=== PATIENT | male | born 1975 | race Hispanic/Latino ===

== ENCOUNTER 2022-04-03 10:05 | Emergency (ER) | payer SELFPAY ==
[2022-04-03] MEDS ORDERED: Ketorolac Tromethamine 30 MG/ML VIAL ONE (12:58)
[2022-04-04] MEDS ORDERED: predniSONE 20 MG TAB ONE (13:10)
[2022-04-04] MEDS ORDERED: Ketorolac Tromethamine 30 MG/ML VIAL ONE ×2 (13:10)
[2022-04-04] MEDS ORDERED: Cyclobenzaprine 10 MG TAB ONE (13:24)
== END 2022-04-03 13:02 | disposition home or self-care (01) ==
LOC: ERS 10:05
DX: S39.012A Strain of muscle, fascia and tendon of lower back, initial encounter (principal); X58.XXXA Exposure to other specified factors, initial encounter
CPT/HCPCS: 72100; J1885

== ENCOUNTER 2022-04-04 11:48 | Emergency (ER) | payer SELFPAY | END 2022-04-04 14:12 | disposition home or self-care (01) | LOC: ERS 11:48 | DX: S39.012A Strain of muscle, fascia and tendon of lower back, initial encounter (principal); X50.9XXA Other and unspecified overexertion or strenuous movements or postures, initial encounter | CPT/HCPCS: 96372; 99283 ==

== ENCOUNTER 2022-04-13 08:56 | Emergency (ER) | payer SELFPAY ==
[~2022-04-13 08:56] MED LIST: ISOVUE-370 76%-LOCM 1 ML ONE
[2022-04-13 09:27] LABS: #Lymphocytes 1.4 thou/uL (1.20-3.40); #Monocytes 0.9 thou/uL (0.11-0.59); #Neutrophils 10.2 thou/uL (1.40-6.50); %Basophils 0.2 % (0.0-1.0); %Eosinophils 0.3 % (0.0-10.0); %Neutrophils 81.5 % (42.0-75.0); Mean Corpuscular HGB CONC 33.8 g/dL (32.0-36.0); Mean Corpuscular Hemoglobin 30.8 pg (27.0-31.0); Mean Corpuscular Volume 91.1 fL (78.0-98.0); Mean Platelet Volume 8.4 fL (7.4-10.4); Platelet Count 276 thou/uL (130-400); RBC Distribution Width 12.6 % (11.5-14.5); Red Blood Cell (RBC) Count 6.18 mill/uL (4.70-6.10); White Blood Cell (WBC) Count 12.6 thou/uL (4.8-10.8)
[2022-04-13 09:53] LABS: ALT (SGPT) 35 U/L (8-55); AST (SGOT) 78 U/L (5-34); Albumin 4.3 g/dL (3.5-5.0); Alkaline Phosphatase 140 U/L (40-110); Anion Gap 18 mmol/L (10-20); BUN (Urea Nitrogen) 22 mg/dL (8.9-20.6); Bilirubin, Total 1.6 mg/dL (0.2-1.2); CK (CPK) 187 U/L (30-200); Calc. Creatinine Clearance 0 mL/min (70-130); Calcium 10.1 mg/dL (7.8-10.44); Carbon Dioxide 22 mmol/L (22-29); Chloride 100 mmol/L (98-107); Estimated GFR 72; Globulin 3.2 g/dL (2.4-3.5); Glucose 148 mg/dL (70-105); Lipase 68 U/L (8-78); Protein, Total 7.5 g/dL (6.0-8.3); Sodium 136 mmol/L (136-145)
[2022-04-13] MEDS ORDERED: Ondansetron PF 4 MG/2 ML Vial ONE (10:10)
[2022-04-13] MEDS ORDERED: Morphine 4 MG/ML VIAL ONE (10:10)
[2022-04-13] MEDS ORDERED: Famotidine/PF 20 mg/2ml Vial ONE (10:17)
== END 2022-04-13 12:26 | disposition home or self-care (01) ==
LOC: ERS 08:56
DX: R10.33 Periumbilical pain (principal); E86.0 Dehydration
CPT/HCPCS: 36415; 71045; 74177; 80053; 82550; 83690; 84484; 85025; 93005; 94760; 96374; 96375; J2270; J2405; Q9966; S0028

== ENCOUNTER 2022-04-14 17:39 | Inpatient (IN) | payer SELFPAY ==
[2022-04-14] MEDS ORDERED: Ondansetron PF 4 MG/2 ML Vial ONE (18:56)
[2022-04-14] MEDS ORDERED: Morphine 4 MG/ML VIAL ONE (18:56)
[2022-04-14 19:09] LABS: Bacteria/HPF None Seen HPF (None Seen); Bilirubin 1+ (Negative); Blood, Urine Negative (Negative); Clarity Clear (Clear); Glucose, Urine (Dipstick) Normal (Negative); Ketone, Urine Negative (Negative); Leukocyte Negative Leu/uL (Negative); Nitrite Negative (Negative); Protein, Urine (Dipstick) 50 mg/dL (Neg-Trace); RBC/HPF 0-3 HPF (0-3); Specific Gravity, Urine 1.039 (1.002-1.036); Squamous Epithelial 0-3 HPF (0-3); Urobilinogen Greater than 12 mg/dL (Less than 2); WBC/HPF 0-3 HPF (0-3)
[2022-04-14 19:12] LABS: Hemoglobin 14.8 g/dL (14.0-18.0); Mean Corpuscular HGB CONC 33.4 g/dL (32.0-36.0); Mean Corpuscular Hemoglobin 31.1 pg (27.0-31.0); Mean Corpuscular Volume 93.1 fL (78.0-98.0); Mean Platelet Volume 8.4 fL (7.4-10.4); Platelet Count 219 thou/uL (130-400); RBC Distribution Width 12.4 % (11.5-14.5); Red Blood Cell (RBC) Count 4.76 mill/uL (4.70-6.10); White Blood Cell (WBC) Count 16.9 thou/uL (4.8-10.8)
[2022-04-14 19:28] LABS: Band 42 % (5-11); Eosinophils 2 % (0-10); Lymphocytes 5 % (21-51); MDiff Complete? YES; Metamyelocyte 7 % (0-0); Monocytes 2 % (0-10); Neutrophil 42 % (42-75); Platelet Morphology Comment Appears Adequate; RBC Morphology Normal; Reflex for Review?? YES; Vacuoles SLIGHT
[2022-04-14 19:52] LABS: ALT (SGPT) 33 U/L (8-55); AST (SGOT) 69 U/L (5-34); Albumin 3.1 g/dL (3.5-5.0); Alkaline Phosphatase 117 U/L (40-110); Anion Gap 14 mmol/L (10-20); BUN (Urea Nitrogen) 16 mg/dL (8.9-20.6); Bilirubin, Total 1.8 mg/dL (0.2-1.2); CK (CPK) 109 U/L (30-200); Calc. Creatinine Clearance 0 mL/min (70-130); Calcium 8.4 mg/dL (7.8-10.44); Carbon Dioxide 23 mmol/L (22-29); Chloride 100 mmol/L (98-107); Estimated GFR 72; Globulin 2.4 g/dL (2.4-3.5); Glucose 121 mg/dL (70-105); Lipase 132 U/L (8-78); Potassium 3.8 mmol/L (3.5-5.1); Protein, Total 5.5 g/dL (6.0-8.3); Sodium 133 mmol/L (136-145)
[2022-04-14] MEDS ORDERED: diphenhydrAMINE 50 MG/ML VIAL ONE (20:01)
[2022-04-14 20:32] LABS: SARS-CoV-2 NAA Rapid Test DETECTED (NotDetected)
[2022-04-14] MEDS ORDERED: Piperacillin/Tazobactam 3.375 GM VIAL ONE (21:28)
[2022-04-14] MEDS ORDERED: EPINEPHrine 1 MG/10 ML Abboject SYRINGE ONE (21:28)
[2022-04-14] MEDS ORDERED: EPINEPHrine 1 MG/ML VIAL ONE (21:28)
[2022-04-14] MEDS ORDERED: Ondansetron ODT 4 MG TAB SL PRN (22:15)
[2022-04-14] MEDS ORDERED: Ondansetron PF 4 MG/2 ML Vial IVP PRN (22:15)
[2022-04-14] MEDS ORDERED: Ibuprofen 200 MG TAB ONE (22:26)
[2022-04-14] MEDS ORDERED: Acetaminophen 650 MG Suppository PR PRN (22:28)
[2022-04-14] MEDS ORDERED: Acetaminophen 325 MG TAB PO PRN (22:28)
[2022-04-14] MEDS ORDERED: Sodium Chloride 0.9% 1,000 ML IV SCH (22:45)
[2022-04-14] MEDS ORDERED: Piperacillin/Tazobactam 3.375 GM in Sodium Chloride 0.9% 100 ML IVPB SCH (22:45)
[2022-04-15 00:04] VITALS: BMI 30.2
[2022-04-15 00:09] LABS: Magnesium 1.6 mg/dL (1.6-2.6); Triglycerides 129 mg/dL (Less than 150)
[2022-04-15 00:14] LABS: Troponin I Less than 0.010 ng/mL (< 0.028)
[2022-04-15 00:20] LABS: Phosphorus 1.8 mg/dL (2.3-4.7)
[2022-04-15] MEDS: Sodium Chloride 0.9% 1,000 ML IV SCH ×4 (00:47→17:01)
[2022-04-15] MEDS ORDERED: Piperacillin/Tazobactam 3.375 GM in Sodium Chloride 0.9% 100 ML IVPB SCH (02:00)
[2022-04-15] MEDS ORDERED: Sodium Phosphate 30 MMOL in Sodium Chloride 0.9% 250 ML 250 ML IVPB SCH (02:15)
[2022-04-15] MEDS: Piperacillin/Tazobactam 3.375 GM in Sodium Chloride 0.9% 100 ML IVPB SCH ×2 (02:21→11:46)
[2022-04-15] MEDS ORDERED: Pantoprazole 40 MG VIAL IVP SCH (02:30)
[2022-04-15 02:33] LABS: Hemoglobin 13.4 g/dL (14.0-18.0); Mean Corpuscular HGB CONC 33.4 g/dL (32.0-36.0); Mean Corpuscular Hemoglobin 31.2 pg (27.0-31.0); Mean Corpuscular Volume 93.5 fL (78.0-98.0); Mean Platelet Volume 8.2 fL (7.4-10.4); Platelet Count 197 thou/uL (130-400); RBC Distribution Width 12.5 % (11.5-14.5); Red Blood Cell (RBC) Count 4.29 mill/uL (4.70-6.10); White Blood Cell (WBC) Count 17.5 thou/uL (4.8-10.8)
[2022-04-15 02:58] LABS: Band 45 % (5-11); Lymphocytes 7 % (21-51); MDiff Complete? YES; Metamyelocyte 2 % (0-0); Monocytes 1 % (0-10); Neutrophil 45 % (42-75); Platelet Morphology Comment Appears Adequate; RBC Morphology Normal
[2022-04-15 03:00] LABS: Troponin I Less than 0.010 ng/mL (< 0.028)
[2022-04-15 03:03] LABS: ALT (SGPT) 23 U/L (8-55); AST (SGOT) 38 U/L (5-34); Albumin 2.6 g/dL (3.5-5.0); Alkaline Phosphatase 88 U/L (40-110); Anion Gap 11 mmol/L (10-20); BUN (Urea Nitrogen) 14 mg/dL (8.9-20.6); Bilirubin, Direct 0.9 mg/dL (0.1-0.3); Bilirubin, Total 1.9 mg/dL (0.2-1.2); Calc. Creatinine Clearance 91 mL/min (70-130); Calcium 7.7 mg/dL (7.8-10.44); Carbon Dioxide 22 mmol/L (22-29); Chloride 108 mmol/L (98-107); Estimated GFR 74; Glucose 110 mg/dL (70-105); Magnesium 1.7 mg/dL (1.6-2.6); Protein, Total 4.5 g/dL (6.0-8.3); Sodium 137 mmol/L (136-145)
[2022-04-15 03:05] LABS: Phosphorus 1.9 mg/dL (2.3-4.7)
[2022-04-15] MEDS ORDERED: Sodium Chloride 0.9% 500 ML IV SCH (03:30)
[2022-04-15] MEDS ORDERED: Sodium Chloride 0.9% 1,000 ML IV SCH (06:15)
[2022-04-15] MEDS ORDERED: methylPREDNISolone Sod Succ/PF 125 MG/2 ML VIAL IVP SCH (06:30)
[2022-04-15] MEDS ORDERED: diphenhydrAMINE 50 MG/ML VIAL IVP SCH (06:30)
[2022-04-15] MEDS ORDERED: Acetaminophen 650 MG Suppository PR PRN (06:43)
[2022-04-15] MEDS ORDERED: Benzonatate 100 MG CAP PO PRN (06:43)
[2022-04-15] MEDS: Enoxaparin Sodium 40 MG/0.4 ML SYRINGE SC SCH (09:01)
[2022-04-15] MEDS: Cholecalciferol (Vitamin D3) 400 UNITS TAB PO SCH (09:01)
[2022-04-15] MEDS: Ascorbic Acid 500 mg Chewable Tablet PO SCH (09:01)
[2022-04-15] MEDS: Zinc Sulfate 220 MG CAP PO SCH (09:02)
[2022-04-15] MEDS: Pantoprazole 40 MG VIAL IVP SCH (09:02)
[2022-04-15 10:22] LABS: Bacteria/HPF None Seen HPF (None Seen); Bilirubin Negative (Negative); Blood, Urine Negative (Negative); Clarity Clear (Clear); Glucose, Urine (Dipstick) Normal (Negative); Ketone, Urine Trace mg/dL (Negative); Leukocyte Negative Leu/uL (Negative); Nitrite Negative (Negative); Protein, Urine (Dipstick) 30 mg/dL (Neg-Trace); RBC/HPF 0-3 HPF (0-3); Specific Gravity, Urine 1.039 (1.002-1.036); Squamous Epithelial 0-3 HPF (0-3); Urobilinogen 3 mg/dL (Less than 2); WBC/HPF 0-3 HPF (0-3)
[2022-04-15] MEDS: Albumin 25% 25 GM/100 ML BOT IVPB SCH (11:49)
[2022-04-15] MEDS: diphenhydrAMINE 25 MG in Sodium Chloride 0.9% 50 ML IVPB PRN (17:02)
[2022-04-15] MEDS: Famotidine/PF 20 mg/2ml Vial SLOW IVP SCH (20:22)
[2022-04-16] MEDS: diphenhydrAMINE 25 MG in Sodium Chloride 0.9% 50 ML IVPB PRN (01:48)
[2022-04-16] MEDS: Sodium Chloride 0.9% 1,000 ML IV SCH ×2 (01:50→08:47)
[2022-04-16 04:32] LABS: #Lymphocytes 0.8 thou/uL (1.20-3.40); #Monocytes 0.5 thou/uL (0.11-0.59); #Neutrophils 14.5 thou/uL (1.40-6.50); %Eosinophils 0.1 % (0.0-10.0); %Lymphocytes 5.3 % (21.0-51.0); %Neutrophils 91.6 % (42.0-75.0); Mean Corpuscular HGB CONC 34.2 g/dL (32.0-36.0); Mean Corpuscular Hemoglobin 32.4 pg (27.0-31.0); Mean Corpuscular Volume 94.7 fL (78.0-98.0); Mean Platelet Volume 8.9 fL (7.4-10.4); Platelet Count 195 thou/uL (130-400); RBC Distribution Width 12.4 % (11.5-14.5); Red Blood Cell (RBC) Count 3.71 mill/uL (4.70-6.10); White Blood Cell (WBC) Count 15.8 thou/uL (4.8-10.8)
[2022-04-16 04:57] LABS: Anion Gap 9 mmol/L (10-20); BUN (Urea Nitrogen) 16 mg/dL (8.9-20.6); Calc. Creatinine Clearance 119 mL/min (70-130); Calcium 8.7 mg/dL (7.8-10.44); Carbon Dioxide 23 mmol/L (22-29); Chloride 112 mmol/L (98-107); Estimated GFR 101; Glucose 139 mg/dL (70-105); Sodium 140 mmol/L (136-145)
[2022-04-16] MEDS: Ascorbic Acid 500 mg Chewable Tablet PO SCH (08:47)
[2022-04-16] MEDS: Cholecalciferol (Vitamin D3) 400 UNITS TAB PO SCH (08:47)
[2022-04-16] MEDS: Enoxaparin Sodium 40 MG/0.4 ML SYRINGE SC SCH (08:47)
[2022-04-16] MEDS: Pantoprazole 40 MG VIAL IVP SCH (08:47)
[2022-04-16] MEDS: Zinc Sulfate 220 MG CAP PO SCH (08:47)
[2022-04-16] MEDS: Famotidine/PF 20 mg/2ml Vial SLOW IVP SCH ×2 (08:47→20:42)
[2022-04-16] MEDS: Albumin 25% 25 GM/100 ML BOT IVPB SCH (11:38)
[2022-04-16] MEDS ORDERED: Polyethylene Glycol 3350 17 GM Packet PO SCH (14:15)
[2022-04-16] MEDS ORDERED: methylPREDNISolone Sod Succ 40 MG VIAL IVP SCH (14:15)
[2022-04-16] MEDS: Calamine/Zinc Oxide 177 ML LOTION TP SCH ×2 (15:23→20:42)
[2022-04-16] MEDS: hydrOXYzine 25 MG TAB PO PRN ×2 (15:35→21:53)
[2022-04-16] MEDS: methylPREDNISolone Sod Succ 40 MG VIAL IVP SCH (20:42)
[2022-04-17] MEDS: hydrOXYzine 25 MG TAB PO PRN ×2 (05:52→12:41)
[2022-04-17] MEDS: Famotidine/PF 20 mg/2ml Vial SLOW IVP SCH (08:48)
[2022-04-17] MEDS: Enoxaparin Sodium 40 MG/0.4 ML SYRINGE SC SCH (08:48)
[2022-04-17] MEDS: Cholecalciferol (Vitamin D3) 400 UNITS TAB PO SCH (08:49)
[2022-04-17] MEDS: Ascorbic Acid 500 mg Chewable Tablet PO SCH (08:49)
[2022-04-17] MEDS: Zinc Sulfate 220 MG CAP PO SCH (08:49)
[2022-04-17] MEDS: methylPREDNISolone Sod Succ 40 MG VIAL IVP SCH (08:53)
[2022-04-17] MEDS: Pantoprazole 40 MG VIAL IVP SCH (08:53)
[2022-04-17] MEDS: Calamine/Zinc Oxide 177 ML LOTION TP SCH ×2 (08:53→16:54)
[2022-04-17 09:39] LABS: Hemoglobin A1c 5.4 % (4.0-6.0)
[2022-04-17 09:49] VITALS: BP 105/50
[2022-04-17 13:18] LABS: ALT (SGPT) 114 U/L (8-55); AST (SGOT) 256 U/L (5-34); Albumin 3.2 g/dL (3.5-5.0); Alkaline Phosphatase 269 U/L (40-110); Anion Gap 15 mmol/L (10-20); BUN (Urea Nitrogen) 14 mg/dL (8.9-20.6); Bilirubin, Total 0.5 mg/dL (0.2-1.2); Calc. Creatinine Clearance 135 mL/min (70-130); Calcium 8.7 mg/dL (7.8-10.44); Carbon Dioxide 22 mmol/L (22-29); Chloride 107 mmol/L (98-107); Estimated GFR 108; Globulin 2.1 g/dL (2.4-3.5); Glucose 144 mg/dL (70-105); Lipase 52 U/L (8-78); Protein, Total 5.3 g/dL (6.0-8.3); Sodium 140 mmol/L (136-145)
[2022-04-17 16:56] VITALS: TEMP 98.1
== END 2022-04-17 16:59 | disposition home or self-care (01) | DRG 391 ==
LOC: ERS 17:39 → 2NO 21:57 → T4-A 04-16 18:19
PROVIDERS: ADMIT Student in an Organized Health Care Education/Training Program; ATTEND Family Medicine
PROC: 8E0ZXY6 Isolation (ICD-10-PCS; principal; 2022-04-14)
DX: K29.80 Duodenitis without bleeding (principal); U07.1 COVID-19; I95.9 Hypotension, unspecified; K52.9 Noninfective gastroenteritis and colitis, unspecified; R21 Rash and other nonspecific skin eruption; E87.6 Hypokalemia
CPT/HCPCS: 36415; 36416; 71045; 74177; 76705; 80048; 80053; 80076; 81003; 81015; 82550; 83036; 83605; 83690; 83735; 83880; 84100; 84443; 84478; 84484; 85025; 85060; 87040; 87086; 93005; C9113; J0171; J1200; J1650; J2270; J2405; J2543; J2920; J2930; J3490; J7030; J7050; P9047; Q9966; S0028; U0002